=== PATIENT | female | born 1955 | race Caucasian/White ===

== ENCOUNTER → 2023-11-05 11:24 | Outpatient (REF) | payer MEDICARE, OTHER, SELFPAY | LOC: DHCBC/DCA 11:24 | PROVIDERS: ATTENDING PHYSICIAN Internal Medicine; FAMILY PHYSICIAN Family Medicine | DX: R07.89 Other chest pain (principal); I25.10 Atherosclerotic heart disease of native coronary artery without angina pectoris; R93.1 Abnormal findings on diagnostic imaging of heart and coronary circulation; I10 Essential (primary) hypertension | CPT/HCPCS: 78452; 93017; A9500 ==

== ENCOUNTER 2023-11-11 06:28 | Day surgery (SDC) | payer MEDICARE, OTHER, SELFPAY ==
[2023-11-11] VITALS (13 sets, daily range): BP systolic 121–146; BP diastolic 64–73; BMI 26.7
[2023-11-11] MEDS: NSS 1000 IV (08:30)
--- NOTE | 2023-11-11 09:03 | ITS.CL.CATH ---
Assessment Manager - Catheterization
Cardiac Catheterization
Procedure Report:
CARDIAC CATHETERIZATION REPORT
Date of Procedure: 11/11/2023
Referring: Valdemar Saucedo M.D.
INDICATION: Chest pain, abnormal stress test.
PROCEDURE:
1. Left heart catheterization.
2. Coronary angiography.
ACCESS:
6 [place] right radial artery.
CATHETERS:
1. 5 [place] JR4.
2. 5 [place] JL 3.5.
HEMODYNAMIC DATA
Weight (kg): 70.3
AO (s/d/x, mmHg): 119/70/96
LV (s/x mmHg): 119/7
LEFT VENTRICULOGRAPHY: Not performed.
CORONARY ANGIOGRAPHY
Dominance: Right.
Left Main: Large size, bifurcating vessel. There is no coronary artery disease.
LAD: The vessel is normal in its proximal and mid sections but is diminutive in its distal margin, ending well before the apex of the heart. The first diagonal is a large vessel supplying the majority of the lateral and anterolateral wall then
wrapping around and supplying the true apex. The second diagonal is also a substantial vessel supplying the mid and distal anterolateral wall. There is no coronary artery disease. The distal vessels are all severely tortuous.
Ramus: Congenitally absent.
Circumflex: Large size, nondominant vessel giving rise to 1 significant obtuse marginal before terminating as a left posterolateral branch. There is no coronary artery disease. The distal vessels are all severely tortuous.
RCA: Large size, dominant vessel. The true RPDA is a small, diminutive vessel arising off the distal circumflex and supplying the proximal two thirds of the inferior interventricular septum. The distal third of the septum is supplied by a
branch from the acute marginal. There is moderate to severe tortuosity throughout. The distal RCA gives rise to a large atrial branch.
INTERVENTION(S)
None.
Closure Device: Vascular band.
Radiation (mGy): 261.64
DAP (cm2.Gy): 16.4435
Fluoroscopy time (minutes): 1.6
Sedation time (minutes): 22
CONCLUSIONS
1. Right dominant circulation with severely tortuous vessels and no coronary artery disease. The LAD is diminutive in its distal margin with the true apex supplied by the distal aspect of the large first diagonal.
2. Normal filling pressures (LVEDP = 7 mmHg at 70.3 kg).
RECOMMENDATIONS:
1. Expectant management after cardiac catheterization via right radial approach.
2. Limited weight bearing on the right wrist for one week.
3. Stable for outpatient follow-up and further evaluation of nonischemic chest pain.
Copy to: Valdemar Saucedo M.D., Gwendolyn Carmona M.D.
Angelo Dunn DO, FACC, FACP
[2023-11-11] MEDS: NSS 212 ML IV (10:07)
== END 2023-11-11 11:38 | disposition home or self-care (01) ==
LOC: CATH 06:28
PROVIDERS: ATTENDING PHYSICIAN Internal Medicine Cardiovascular Disease; FAMILY PHYSICIAN Family Medicine; OTHER PHYSICIAN Internal Medicine
DX: R07.89 Other chest pain (principal); R94.39 Abnormal result of other cardiovascular function study; R93.1 Abnormal findings on diagnostic imaging of heart and coronary circulation; Z82.49 Family history of ischemic heart disease and other diseases of the circulatory system; I10 Essential (primary) hypertension; Z79.82 Long term (current) use of aspirin
CPT/HCPCS: 93458

== ENCOUNTER → 2023-11-14 08:17 | Outpatient (REF) | payer MEDICARE, OTHER, SELFPAY | LOC: HWRCS 08:17 | PROVIDERS: ATTENDING PHYSICIAN Internal Medicine; FAMILY PHYSICIAN Family Medicine | DX: R07.89 Other chest pain (principal); I10 Essential (primary) hypertension | CPT/HCPCS: 93306 ==

== ENCOUNTER → 2024-04-16 07:50 | Outpatient (REF) | payer MEDICARE, OTHER, SELFPAY | LOC: HWRAD 07:50 | PROVIDERS: ATTENDING PHYSICIAN Family Medicine | DX: K76.0 Fatty (change of) liver, not elsewhere classified (principal) | CPT/HCPCS: 76700 ==

== ENCOUNTER → 2024-12-22 10:54 | Outpatient (REF) | payer MEDICARE, OTHER, SELFPAY | LOC: HWRAD 10:54 | PROVIDERS: ATTENDING PHYSICIAN Family Medicine | DX: K82.4 Cholesterolosis of gallbladder (principal) | CPT/HCPCS: 76700 ==

== ENCOUNTER → 2025-01-06 17:00 | Outpatient (REF) | payer MEDICARE, OTHER, SELFPAY | LOC: WDC 17:00 | PROVIDERS: ATTENDING PHYSICIAN Obstetrics & Gynecology; FAMILY PHYSICIAN Family Medicine | DX: Z12.31 Encounter for screening mammogram for malignant neoplasm of breast (principal) | CPT/HCPCS: 77063; 77067 ==